=== PATIENT | male | born 1965 | race Caucasian/White ===

== ENCOUNTER 2018-03-25 19:57 | Emergency (ER) | payer OTHER ==
[~2018-03-25] VITALS: Ht 188 cm; Wt 79.6 kg
[~2018-03-25 19:57] MED LIST: BACTRIM,SEPT1 TABLET PO; DEPAKOTE ER250 MG PO; DIVALPROEX SOD250 M1 PO; KEFLEX500 MG PO; QUETIAPINE FUMA50 MG PO; SEROQUEL100 MG PO
[2018-03-25] MEDS ORDERED: CIPRO500 MG PO (20:38)
[2018-03-25 20:48] VITALS: BP 145/83
== END 2018-03-25 20:50 | disposition home or self-care (01) ==
LOC: EME 19:57 → RME 19:57
PROC: 3E0234Z Introduction of Serum, Toxoid and Vaccine into Muscle, Percutaneous Approach (ICD-10-PCS; principal; 2018-03-25)
DX: S91.332A Puncture wound without foreign body, left foot, initial encounter (principal); W45.0XXA Nail entering through skin, initial encounter; Z23 Encounter for immunization
CPT/HCPCS: 99281; 99284